=== PATIENT | male | born 1960 | race Caucasian/White ===

== ENCOUNTER 2016-07-15 06:34 | Day surgery (SDC) | payer BC ==
[2016-07-15] VITALS (8 sets, daily range): BP systolic 121–151; BP diastolic 66–83; PULSE 60–75; RESP 12–16; Ht 182.9 cm; Wt 80.9 kg
[~2016-07-15] VITALS: Ht 182.9 cm; Wt 80.9 kg
[2016-07-15 08:01] LABS: BASOPHILS % 0.5 % (0.0-2.0); EOSINOPHILS # 0.1 10^3/ul (0.0-0.5); EOSINOPHILS % 2.6 % (0.0-7.0); HEMATOCRIT 42.6 % (42.0-52.0); HEMOGLOBIN 14.5 g/dl (14.0-18.0); LYMPHOCYTES # 1.7 10^3/ul (0.8-2.9); LYMPHOCYTES % 33.2 % (15.0-51.0); MEAN CORPUSCULAR HEMOGLOBIN 31.9 pg (29.0-33.0); MEAN CORPUSCULAR HGB CONC 34.1 g/dl (32.0-37.0); MEAN CORPUSCULAR VOLUME 93.5 fl (82.0-101.0); MEAN PLATELET VOLUME 7.1 fl (7.4-10.4); MONOCYTE # 0.4 10^3/ul (0.3-0.9); MONOCYTES % 7.3 % (0.0-11.0); NEUTROPHIL # 2.9 10^3/ul (1.6-7.5); NEUTROPHILS % 56.4 % (39.0-77.0); PLATELET COUNT 253 10^3/UL (140-440); RED BLOOD COUNT 4.56 10^6/ul (4.70-6.10); RED CELL DISTRIBUTION WIDTH 12.6 % (11.5-14.5); UNCORRECTED WBC 5.2 10^3/ul (4.8-10.8); WHITE BLOOD COUNT 5.2 10^3/ul (4.8-10.8)
[2016-07-15 08:02] LABS: CONDITION 1
[2016-07-15 08:12] LABS: POTASSIUM 4.1 mmol/L (3.5-5.1)
[2016-07-15 08:19] LABS: CALCIUM 8.9 mg/dl (8.4-10.2); CREATININE 0.72 mg/dl (0.61-1.24)
[2016-07-15] MEDS ORDERED: MIDAZOLAM 1 MG/ML 2 ML INJ ONE ×2 (08:22→08:23)
[2016-07-15] MEDS ORDERED: PROPOFOL 20 ML ONE (08:23)
[2016-07-15] MEDS ORDERED: ALBUTEROL 0.083% (NEB) 2.5 MG/3 ML AMP ONE (08:52)
[2016-07-15] MEDS ORDERED: METHYLPREDNISOLONE 125 MG INJ ONE (09:07)
--- NOTE | 2016-07-15 09:16 | PDOCDIS ---
Discharge Instructions CONDITION Patient Condition: Good HOME CARE INSTRUCTIONS: Diet Instructions: Reduced Sodium ACTIVITY: Activity Restrictions Comment: No driving x 1 day OTHER ORDERS: Other Orders: Given stridor (spasm) during procedure, patient put on steroid taper. Follow up with primary doctor and ENT next 1-2 days. If any worsening wheezing, shortness of breath, contact doctor sooner. Nahid Regan DO Jul 15, 2016 09:16
[2016-07-15] MEDS ORDERED: AMI25 PO (09:22)
[2016-07-15] MEDS ORDERED: CAND16TA11 PO (09:22)
[2016-07-15] MEDS ORDERED: MED4DP PO (09:22)
[2016-07-15] MEDS ORDERED: METO-448 PO (09:22)
--- NOTE | 2016-07-15 12:20 | CARRPT ---
DATE OF PROCEDURE: 07/15/2016 PROCEDURE: Transesophageal echocardiogram. PATIENT HISTORY: This is a 56-year-old male with history of mitral regurgitation who presents with transesophageal echocardiogram. DESCRIPTION OF PROCEDURE: The patient was brought to the livestock laborer holding area , and informed consent was obtained. Anesthesia was there for anesthesia. The patient was intubated with the YADIRA probe. Images were obtained. YADIRA probe was removed. After YADIRA probe was removed, the patient started wheezing and became hypoxic. Did require aggressive suctioning, and ambu-bag oxygenation for a few minutes as well as nebulizer treatments. The patient did improve fully by the end of the case. TRANSESOPHAGEAL ECHOCARDIOGRAM FINDINGS: 1. Left ventricle with mild decreased ejection fraction of approximately 50%. 2. Right ventricle appears normal systolic function. 3. The mitral valve appears redundant with significant prolapse noted of the anterior leaflet as well as mild to moderate prolapse of the posterior leaflet. There is moderate to severe mitral valve regurgitation. There is no systolic pulmonary flow reversal seen in the 2 pulmonary veins interrogated. 4. Aortic valve is trileaflet with no significant regurgitation. 5. The pulmonic valve is not well visualized with trace regurgitation. 6. Tricuspid valve is grossly normal with mild regurgitation. 7. Right atrium is grossly normal, prominent eustachian valve. 8. Interatrial septum interrogation did demonstrate some left to right shunting seen via a small patent foramen ovale. IMPRESSION: 1. Moderate to severe mitral regurgitation. 2. Mitral valve prolapse. 3. Patent foramen ovale. COMPLICATIONS: Had stridor at the end of procedure, resolved. BLOOD LOSS: None. RECOMMENDATIONS: Cardiology followup. Dictated By: GABE FLORES/CHANTELLE Conf#: [id number] DID#: [id number] MTDD
[2016-07-15 12:52] LABS: INR 1.07; PROTIME 13.9 Sec (12.2-14.2); PT RATIO 1.1
[2016-07-15 12:54] LABS: PARTIAL THROMBOPLASTIN TIME 29.4 Sec (25.0-35.0)
--- NOTE | 2016-07-16 11:47 | RADRPT ---
Vent Rate: 60 bpm RR Interval: 0 msec MT Interval: 162 msec QRS Duration: 98 msec QT Interval: 410 msec QTC Interval: 410 msec P-R-T [place]: 52 - 47 - 51 degrees Normal sinus rhythm Normal ECG Electronically Signed By: Larry Burnham [id number]
== END 2016-07-15 10:53 | disposition home or self-care (01) ==
LOC: SDS 06:34
PROVIDERS: ATTEND Internal Medicine Cardiovascular Disease
DX: I34.0 Nonrheumatic mitral (valve) insufficiency (principal)
CPT/HCPCS: 80048; 85025; 85610; 85730; 93005; 94664; J2250; J2930; 93312